=== PATIENT | female | born 1950 | race African-American/Black ===

== ENCOUNTER 2021-04-21 06:35 | Emergency (ER) | payer MEDICARE, SELFPAY ==
--- NOTE | ~2021-04-21 | XR_ITS ---
XR chest 2V DATE: 04/21/2021 07:31 INDICATION: Chest pain, chest tightness, cough TECHNIQUE: AP and lateral views COMPARISON: 07/22/2018 2 view chest 07/19/2018 2 view chest FINDINGS: Chronic prominent interstitial changes in the lung bases are stable since 07/19/2018. There i s evidence of old pulmonary granulomatous disease. Cardiomegaly. No pulmonary consolidation is detected. No pleural effusion or pulmonary vascular congestion or pneumothorax. Diffuse osteopenia. IMPRESSION: Chronic prominent bibasilar interstitial fibrosis, dating back to 07/19/2018 Reviewed, dictated and finalized at location A.
[2021-04-21 06:43] VITALS: BP 122/103; PULSE 70; RESP 20; TEMP 36.3
--- NOTE | 2021-04-21 06:47 | ECG_ITS ---
Measurements Intervals [place] Rate: 65 P: 53 NC: 148 QRS: 31 QRSD: 75 T: 22 QT: 393 QTc: 410 Interpretive Statements SINUS RHYTHM SUPRAVENTRICULAR BIGEMINY AND ATRIAL PREMATURE COMPLEX ABNORMAL ECG Electronically Signed On 04-21-2021 7:17:16 CDT by Carlos Eduardo Jorge D.O.
[2021-04-21 06:59] VITALS: BP 133/67; PULSE 64; RESP 20; O2SAT 100
[2021-04-21 06:59] LABS: Basophils Percent Auto 0.3 % (0.2-1.2); Eosinophils Absolute Auto 0.3 K/mm3 (0-0.3); Eosinophils Percent Auto 4.4 % (0-4.4); Hematocrit 38.9 % (37.0-47.0); Hemoglobin 12.6 g/dL (12.0-15.0); Immature Granulocyte Absolute 0.02 K/mm3 (0.00-0.031); Immature Granulocyte Percent A 0.3 % (0-0.5); Lymphocytes Absolute Auto 1.79 K/mm3 (0.9-3.2); Mean Corpuscular HGB Conc 32.4 g/dl (32-36); Mean Corpuscular Hemoglobin 28.9 pg (26-34); Mean Corpuscular Volume 89.2 fl (80-100); Mean Platelet Volume 9.4 fl (7.4-10.4); Monocytes Absolute Auto 0.8 K/mm3 (0.1-0.6); Monocytes Percent Auto 9.9 % (2.6-8.5); Neutrophils Absolute Auto 4.8 K/mm3 (1.3-6.7); Neutrophils Percent Auto 62.1 % (45.5-73.1); Platelet Count Result 232 k/mm3 (150-375); Red Blood Count 4.36 M/mm3 (4.2-5.4); Red Cell Distribution Width 13.4 % (11.5-14.5); White Blood Count 7.8 K/mm3 (4.5-10.0)
[2021-04-21 07:10] LABS: Prothrombin Time 12.6 Seconds (11.1-14.7)
--- NOTE | 2021-04-21 07:27 | ED.CHESTPAIN ---
HPI - Chest Pain General Chief Complaint: Chest Pain Stated Complaint: Coughing, dizzy, chest tightness Time Seen by Provider: 04/21/21 07:10 Source: patient Mode of arrival: ambulatory Limitations: no limitations History of Present Illness HPI narrative: 70-year-old female Complains of a cough for about 2 weeks No fever, no shortness of breath She initially had some production of discolored phlegm And sometimes after coughing her chest feels achy and tight She saw her PCP several days after onset of the symptoms and was treated with a Z-Bertram however they persist She decided to come to the ER today because she had a coughing spell at about 4:30 in the morning that woke her up She has been Covid vaccinated and she has had a previous negative Covid test and has 1 currently pending She is a non-smoker with no pulmonary issues that she is aware of Related Data Allergies Allergy/AdvReac Type Severity Reaction Status Date / Time codeine Allergy Mild vomiting Verified 07/22/18 22:07 prochlorperazine Allergy Mild sweat Verified 07/22/18 22:07 Review of Systems Review of Systems: All systems reviewed & are unremarkable except as noted in HPI and below Constitutional: Constitutional: Reports no additional constitutional complaints, Denies chills, Reports fatigue, Denies fever(s), Denies headache(s) and Reports weakness Eyes: Eyes: Reports no additional eye complaints and Denies change in vision ENT: Denies headache(s) and Denies sore throat Cardiovascular: Cardiovascular: Reports chest pain and Denies dyspnea Respiratory: Respiratory: Reports chest congestion, Reports cough and Denies dyspnea Gastrointestinal: Gastrointestinal: Denies abdominal pain, Denies diarrhea and Denies vomiting Genitourinary: Genitourinary: Denies urinary frequency and Denies dysuria Musculoskeletal: Musculoskeletal: Denies deformity, Denies arthralgias, Denies joint swelling and Denies numbness Integumentary/Breasts: Skin/Breast: Denies rash and Denies wounds Neurologic: Denies headache(s), Denies focal weakness and Denies numbness Psychiatric: Psychiatric: Reports no additional psychiatric complaints Endocrine: Endocrine: Reports no additional endocrine complaints Hematologic/Lymphatic: Hematologic/Lymphatic: Reports no additional hematologic/lymphatic complaints Allergic/Immunologic: Allergic/Immunologic: Reports no additional allergic/immunologic complaints [facility] Social History Social History (Updated 04/21/21 @ 08:19 by Johnny Perez MD) Smoking status: Never smoker Exam Const: General: cooperative, no acute distress and alert Nutritional Appearance: thin Orientation/consciousness: patient oriented x3 (alert) HENMT: Head: normal to inspection, normocephalic and atraumatic Ears: external ears normal General nose exam: no epistaxis Eyes: Conjunctivae: conjunctivae normal EOM: EOMs intact bilaterally Neck: Neck: normal visual inspection, supple and no JVD Resp: Effort & Inspection: normal respiratory effort and not labored Auscultation: clear to auscultation bilaterally, crackles (Some fine basilar crackles), no rales, no rhonchi, no wheezes and other (BS =) Cardio: Rate: regular rate Rhythm: regular rhythm Heart sounds: no murmurs GI: GI Palp: Yes Soft to palpation and No Tenderness to palpation present (GI) Skin: General skin exam: normal color and no rashes or lesions noted Neuro: General: patient oriented x3 (alert) and moves all extremities Speech: normal speech Extrem: General: normal to inspection and no pedal edema Psych: Affect: normal affect Course Course Emergency Course: Discussed with patient and family, advised of chronicity of some of the changes on her chest x-ray Vital Signs Vital signs: Vital Signs Temperature 36.3 C L 04/21/21 06:43 Pulse Rate 70 04/21/21 06:43 Respiratory Rate 20 04/21/21 06:43 Blood Pressure 122/103 H 04/21/21 06:43 Temperature 36.3 C L
[2021-04-21 07:39] LABS: Anion Gap 9 mmol/L (8-16); Blood Urea Nitrogen 19 mg/dL (7-17); Calcium 10.5 mg/dL (8.4-10.2); Carbon Dioxide 28 mmol/L (22-30); Chloride 104 mmol/L (98-107); Estimated CRCL calculation 39 ml/min; Estimated Glomerular Filt Rate > 60; Glucose 98 mg/dL (65-110); Potassium 3.7 mmol/L (3.4-5.0); Sodium 141 mmol/L (137-145)
[2021-04-21 07:51] LABS: Troponin I < 0.012 ng/mL (0.000-0.034)
[2021-04-21 08:54] LABS: D Dimer 0.66 ug/mL (<0.48)
[2021-04-21 10:26] LABS: Troponin I < 0.012 ng/mL (0.000-0.034)
[2021-04-21 10:44] VITALS: BP 121/94; PULSE 82; RESP 16; O2SAT 97
== END 2021-04-21 10:58 | disposition home or self-care (01) ==
PROVIDERS: Emergency Medicine; Emergency Provider Emergency Medicine
DX: J84.10 Pulmonary fibrosis, unspecified (principal); J40 Bronchitis, not specified as acute or chronic
CPT/HCPCS: 36415; 71046; 80048; 84484; 85025; 85380; 85610; 85730; 93005; 99284